=== PATIENT | female | born 1985 | race Hispanic/Latino ===

== ENCOUNTER 2016-09-20 08:16 | Inpatient (IN) | payer OTHER ==
[~2016-09-20] VITALS: Ht 142.2 cm; Wt 62.6 kg
[2016-09-20 08:52] LABS: ABSOLUTE BASOPHIL COUNT 0 /CUMM (0.0-0.2); ABSOLUTE EOSINOPHIL COUNT 0 /CUMM (0.0-0.7); ABSOLUTE GRANULOCYTE CT 6.2 /CUMM (1.4-6.5); ABSOLUTE LYMPH COUNT 1.6 /CUMM (1.2-3.4); ABSOLUTE MONOCYTE COUNT 0.5 /CUMM (0.10-0.60); BASOPHIL % 0.3 % (0.0-2.0); EOSINOPHIL % 0.4 % (0-5); MEAN CORPUSCULAR HGB 29.6 PG (27.0-31.0); MEAN CORPUSCULAR HGB CONC 34.3 G/DL (33.0-37.0); MEAN CORPUSCULAR VOLUME 86.3 FL (81.0-99.0); PLATELET COUNT 367 /CUMM (130-400); RBC DISTRIBUTION WIDTH 14.2 % (11.5-14.5); RED BLOOD CELL CT 4.52 /CUMM (4.20-5.40); WHITE BLOOD CELL COUNT 8.4 /CUMM (4.8-10.8)
[2016-09-20] MEDS ORDERED: PRENATAL ONE D1 EACH PO (09:33)
[2016-09-20] MEDS ORDERED: DICLEGIS DR 101 EACH PO (10:16)
[2016-09-20] MEDS ORDERED: XANAX0.25 M1 PO (10:17)
--- NOTE | 2016-09-20 18:34 | History & Physical ---
General Information and HPI MD Statement: I have seen and personally examined TADEO MENDOZA and documented this H&P. The patient is a 31 year old female at [39] weeks and [5] days gestation who presented with a chief complaint of [IUGR]. Source of Information: police History of Present Illness: 31yo G1 lmp 12/17/15 EDC 09/22/16 at 39w5d admitted for IOL for IUGR fetus. EFW 6.5lb. care complete and significant for transfer of care at [address] Leonardo. RPR reactive x 2 with neg FTA. Allergies/Medications Allergies: Coded Allergies: tramadol (Mild, NAUSEA 09/20/16) Uncoded Allergies: Allergy Other N Med Allergies N Home Med list Alprazolam (Xanax) 0.25 MG TABLET 1 TAB PO DAILY NEEDED PRN ANXIETY ( Reported) Doxylamine/Pyridoxine HCl (Diclegis Dr 10-10 MG Tablet) 10 MG-10 MG TABLET.DR 2 TAB PO QPM PRN NAUSEA/VOMITING (Reported) Vit No.129/Iron/FA ( One Daily Tablet) 27 MG IRON-800 MCG TABLET 1 TAB PO DAILY (Reported) Past History valuer History : 1 Para: 0 Last Menstrual Period: 12/17/15 Estimated Delivery Date: 09/22/16 Past valuer History: none Surgical History Pertinent Surgical History: none Past Family/Social History Psychosocial History Smoking Status: Former Smoker Review of Systems Review of Systems Constitutional: Reports: no symptoms. EENTM: Reports: no symptoms. Cardiovascular: Reports: no symptoms. Respiratory: Reports: no symptoms. GI: Reports: no symptoms. Genitourinary: Reports: no symptoms. Musculoskeletal: Reports: no symptoms. Skin: Reports: no symptoms. Neurological/Psychological: Reports: no symptoms. Hematologic/Endocrine: Reports: no symptoms. Immunologic/Allergic: Reports: no symptoms. All Other Systems: Reviewed and Negative Exam & Diagnostic Data Last 24 Hrs of Vital Signs/I&O Intake & Output 09/20 1600 09/20 0800 09/20 0000 Intake Total Output Total Balance Patient 138 lb Weight Obstetric Exam Wgt Gained During : 25 Pelvimetry: gynecoid Dilation (cm): 2 Effacement (%): 50 Station: -1 Membranes: intact Fluid: unknown Fundal Height (cm): 38 Multiple Gestation? No Contractions: occ #1 - FHR Baseline: 145 Category: 1 Estimated Weight: 6-6.5 Presentation: cephalic Patient for Induction? Yes Celestin Score Celestin Score Response Value Cervix Position: mid-position 1 Cervix Consistency: soft 2 Cervix Effacement: 30-50% 1 Cervix Dilation: 1-2 cm 1 Cervix Station: -1 2 Total 7 Physical Exam: HEENT: NCAT Chest: CTA CV: nl S1S2 Abd: gravid, cephalic 6-6.5 Ext: no c/c/e Neuro: nonfocal Labs Blood Type & Rh: AB pos Antibody Screen: neg Hct/Hgb & Platelets #1: Hct/Hgb & Platelets #2: Rubella: imm VDRL #1: reactive VDRL #2: reactive HbsAg: neg HIV #1: neg HIV #2 neg 1 Hr P Group B Strep: neg Initial Ultrasound: wnl Anatomy Ultrasound: wnl Genetic Testing: neg Last 24 Hrs of Labs/Isamel: Laboratory Tests 09/20/16 0835: CBC w Diff NO MAN DIFF REQ, RBC 4.52, MCV 86.3, MCH 29.6, RDW 14.2, MPV 7.0 L, Gran % 74.0, Lymphocytes % 19.3 L, Monocytes % 6.0, Eosinophils % 0.4, Basophils % 0.3, Absolute Granulocytes 6.2, Absolute Lymphocytes 1.6, Absolute Monocytes 0.5, Absolute Eosinophils 0, Absolute Basophils 0, PUBS MCHC 34.3, RPR Titer/FTA NONREACTIVE 09/20/16 0827: Urinalysis LIGHT H, Urine Color YEL, Urine Clarity HAZY H, Urine pH 6.5, Ur Specific [place] 1.020, Urine Protein TRACE H, Urine Ketones NEG, Urine Nitrite NEG, Urine Bilirubin NEG, Urine Urobilinogen 0.2, Ur Leukocyte Esterase SMALL H , Ur Microscopic SEDIMENT EXAMINED, Urine WBC 1-3 H, Ur Epithelial Cells MOD H , Urine Crystals 3+ CA OX H, Urine Bacteria MANY H, Urine Mucus FEW, Urine Hemoglobin NEG, Urine Glucose NEG Microbiology 09/20 1525 URINE ROUT: Urine Culture - RECD Assessment/Plan Assessment/Plan: 39 week IUGR Pitocin IOL As Ranked By This Provider Problem List: 1. Core Measures/Miscellaneous Venous Thromboembolism VTE Risk Factors: / VTE Contraindications: No Contraindications VTE Diagnosis: No Beta Maryuri Is Beta Maryuri a Home Med? No Antibiotics Is Patient on Antibiotics? No
[2016-09-21 00:45] VITALS: BP 107/59
[2016-09-22 07:54] LABS: ABSOLUTE BASOPHIL COUNT 0 /CUMM (0.0-0.2); ABSOLUTE EOSINOPHIL COUNT 0.1 /CUMM (0.0-0.7); ABSOLUTE GRANULOCYTE CT 9.1 /CUMM (1.4-6.5); ABSOLUTE LYMPH COUNT 2.7 /CUMM (1.2-3.4); ABSOLUTE MONOCYTE COUNT 0.5 /CUMM (0.10-0.60); BASOPHIL % 0.4 % (0.0-2.0); EOSINOPHIL % 0.8 % (0-5); MEAN CORPUSCULAR HGB 29.3 PG (27.0-31.0); MEAN CORPUSCULAR HGB CONC 33.4 G/DL (33.0-37.0); MEAN CORPUSCULAR VOLUME 87.7 FL (81.0-99.0); MEAN PLATELET VOLUME 7.1 FL (7.4-10.4); PLATELET COUNT 280 /CUMM (130-400); RBC DISTRIBUTION WIDTH 14.6 % (11.5-14.5); RED BLOOD CELL CT 3.67 /CUMM (4.20-5.40); WHITE BLOOD CELL COUNT 12.4 /CUMM (4.8-10.8)
[2016-09-22 08:28] LABS: HEMATOCRIT 32.2 % (37-47)
[2016-09-23] MEDS ORDERED: IBUPROFEN800 M1 PO (09:31)
--- NOTE | 2016-09-29 13:29 | Labor & Delivery Summary ---
Delivery Summary Vaginal Delivery: Vaginal: vertex Episiotomy/Lacerations: Episiotomy/Lacerations: epis Type: rml Repair: 3-0 layered Anesthesia: epi Placenta: Placenta: spontanteous, normal, 3 vessel Anesthesia: epidural Baby's Weight: 5-12 Apgars - 1 Min: 9 Apgars - 5 Min: 9
== END 2016-09-23 11:00 | DRG 775 ==
LOC: GNO 08:16
PROVIDERS: ADMIT Obstetrics & Gynecology
PROC: 0W8NXZZ Division of Female Perineum, External Approach (ICD-10-PCS; principal; 2016-09-21)
PROC: 10E0XZZ Delivery of Products of Conception, External Approach (ICD-10-PCS; principal; 2016-09-21)
DX: O80 Encounter for full-term uncomplicated delivery (principal); Z87.891 Personal history of nicotine dependence; Z3A.39 39 weeks gestation of pregnancy; Z37.0 Single live birth
CPT/HCPCS: GNOP; GNOS; 81001; 87086; 88307; J1885; J7120